=== PATIENT | male | born 1965 | race Caucasian/White ===

== ENCOUNTER 2016-08-03 09:40 | Day surgery (SDC) | payer BC ==
[~2016-08-03] VITALS: Ht 167.6 cm; Wt 75.7 kg
[~2016-08-03 09:40] MED LIST: LOSARTAN POTAS100 MG PO; OMEPRAZOLE40 MG PO; RANITIDINE HCL150 MG PO; TAMSULOSIN HCL0.4 MG PO
--- NOTE | 2016-08-03 12:45 | Provider's Discharge Care Plan ---
Problem, Goal, Plan Problem List 1. S/P EGD WITH SAVORY DILATION EGJ Goals: Screening, Therapeutic intervention Instructions: Follow up as directed, Take meds as directed, CLEAR LIQUID DIET FOR 24HRS THEN SLOWLY ADVANCE DIET TOLERATED
--- NOTE | 2016-08-03 14:31 | DIAGNOSTIC IMAGING REPORT ---
PROCEDURE: XR FLUORO ENDOSCOPE DILATION INDICATION: DYSPEPSIA TECHNIQUE: C-arm fluoroscopy provided to Dr. Amador for esophageal dilation Fluoroscopy time 2 minutes and 45-second 37.7 mGy). COMPARISON: Upper GI dated 05/27/2016 FINDINGS: Fluoroscopic guided balloon dilatation of the distal esophagus. IMPRESSION: 1. C-arm fluoroscopy for distal esophageal dilation (performed by Dr. Amador
--- NOTE | 2016-08-03 15:34 | OPERATIVE REPORT ---
DATE OF SURGERY: 08/03/2016 SURGEON: Virginia Amador III, MD OCCUPATIONAL THERAPY ASSISTANT: None. PREOPERATIVE DIAGNOSIS: 1. Dysphagia POSTOPERATIVE DIAGNOSES: 1. History of dysphagia 2. Questionable peptic ulcer disease PROCEDURES PERFORMED: 1. Upper gastrointestinal endoscopy with random gastric mucosal biopsies 2. Savary dilation of EG junction to 17 mm under fluoroscopic guidance/ interpretation ANESTHESIA: General endotracheal. INDICATIONS: The patient is a 50-year-old male who in 2008 underwent laparoscopic Annemarie fundoplication with volume reflux. The patient states that he has had a lot of flatus and that at night if he does not eat something, he feels that his stomach is on fire. The patient recently had an upper GI series which shows moderate to marked narrowing of the esophageal junction, 4 mm, associated with delayed emptying, tertiary contractions. No evidence of reflux. The stomach and duodenum appeared grossly normal. The patient states that since his Annemarie fundoplication, his GI tract has never been completely normal. SURGICAL FINDINGS: Normal-appearing duodenum and duodenal mucosa. The gastric mucosa had the appearance of slight hyperemia and a questionable area high in the lesser curvature of an old ulcer. EG junction did not appear to be particularly tight. The distal esophagus appeared grossly normal. The fundoplication appeared grossly normal in a retroflexed view. The remaining esophagus appeared grossly normal. SURGICAL TECHNIQUE: The patient was brought to the operating room and placed in the dorsal supine position, where he underwent general endotracheal anesthesia by the anesthesiology department. After proper anesthesia had taken effect, an Olympus fiberoptic video flexible upper GI endoscope was passed down the patient's posterior pharynx. The esophagus intubated under direct visualization. The scope passed easily down the esophagus, through the EG junction. The scope passed easily through the EG junction without any forceful effort. The scope passed into the gastric lumen and eventually into the second and third portion of the duodenum. On withdrawing the scope, the aforementioned findings were noted. The scope was retroflexed, good view of the cardia, fundus, and EG junction from below, as well as the greater and lesser curvature and the intact fundic wrap. There was questionable evidence of old ulcer in the lesser curvature. Multiple random biopsies were obtained of the gastric mucosa to rule out Helicobacter pylori. It was at this point that a floppy tipped J-wire was placed down the biopsy channel and positioned in the stomach using fluoroscopic guidance. The upper GI endoscope was then withdrawn, leaving the wire in place. At this point, an 11 mm Savary dilator was selected, passed over the wire and, well-lubricated, passed down the posterior pharynx under fluoroscopic guidance, down the esophagus, across the EG junction and left in position for 1 minute. This was done in a sequential fashion, withdrawing the Savary dilator under fluoroscopic guidance, leaving the wire in place and, over the wire, passing each succeeding Savary dilators, again under fluoroscopic guidance, across the EG junction, into the gastric lumen, leaving the Savary dilator in place for 1 minute. The last 2 dilators, which were 15 mm, 16 mm and 17 mm, were left in position for 3 minutes. The wire and the Savary dilator were then removed as a unit and handed off the field. An Olympus fiberoptic video flexible upper GI endoscope was passed once again down the posterior pharynx. Esophagus intubated under direct visualization. The scope passed easily down the esophagus, which was intact, with no evidence of mucosal injury, through the EG junction and easily into the gastric lumen, with no evidence of resistance. The scope was then retroflexed, good view of the cardia, fundus, and EG junction and the wrap obtained. The scope was then withdrawn. The patient tolerated the procedure well, was extubated and transferred to the recovery room in stable condition. It should be noted that an ordinary upper GI endoscope takes 10 or 15 minutes. This procedure took 32 minutes in length and used fluoroscopy for guidance and interpretation.
[2016-08-03 15:35] VITALS: BP 133/96
== END 2016-08-03 14:50 | disposition home or self-care (01) ==
LOC: OR SRH 09:40 → SCU SRH 09:43 → OR SRH 10:30
PROVIDERS: Specialist
PROC: 0D748ZZ Dilation of Esophagogastric Junction, Via Natural or Artificial Opening Endoscopic (ICD-10-PCS; principal; 2016-08-03 09:30)
PROC: 0DB68ZX Excision of Stomach, Via Natural or Artificial Opening Endoscopic, Diagnostic (ICD-10-PCS; principal; 2016-08-03 09:30)
DX: R13.10 Dysphagia, unspecified (principal); K30 Functional dyspepsia; R10.30 Lower abdominal pain, unspecified; Z98.890 Other specified postprocedural states
CPT/HCPCS: 29229; 29240; 50004; 60001; 70002; 80102; 82943; 83526; 90705